=== PATIENT | female | born 1970 | race Caucasian/White ===

== ENCOUNTER 2018-04-25 14:07 | Emergency (ER) | payer OTHER ==
--- NOTE | 2018-04-25 14:45 | EDM.PDOC ---
ED HPI GENERAL MEDICAL PROBLEM - General Chief Complaint: Lower Extremity Injury/Pain Stated Complaint: BLISTER POPPED ON RT FT Time Seen by Provider: 04/25/18 14:39 - History of Present Illness INITIAL COMMENTS - FREE TEXT/NARRATIVE: HISTORY AND PHYSICAL: History of present illness: Patient is a 47-year-old white female presents for medical screening exam patient had an injury to her right lower extremity that required suturing and podiatric referral she was treated she did develop subsequent blister that has subsequently ruptured and she presents today for reevaluation since the blister has ruptured and dressing change. Review of systems: As per history of present illness and below otherwise all systems reviewed and negative. Past medical history: As per history of present illness and as reviewed below otherwise noncontributory. Surgical history: As per history of present illness and as reviewed below otherwise noncontributory. Social history: No reported history of drug or alcohol abuse. Family history: As per history of present illness and as reviewed below otherwise noncontributory. Physical exam: HEENT: Atraumatic, normocephalic, pupils reactive, negative for conjunctival pallor or scleral icterus, mucous membranes moist, throat clear, neck supple, nontender, trachea midline. Lungs: Clear to auscultation, breath sounds equal bilaterally, chest nontender. Heart: S1S2, regular, negative for clicks, rubs, or JVD. Abdomen: Soft, nondistended, nontender. Negative for masses or hepatosplenomegaly. Negative for costovertebral tenderness. Pelvis: Stable nontender. Genitourinary: Deferred. Rectal: Deferred. Extremities: Posterior mold and dressing intact this was removed neurovascular exam is unremarkable is no evidence of infection she has some devitalized superficial skin where the blister was present and has subsequently ruptured. Neuro: Awake, alert, oriented. Cranial nerves II through XII unremarkable. Cerebellum unremarkable. Motor and sensory unremarkable throughout. Exam nonfocal. Diagnostics: None Therapeutics: Dressing change posterior mold reapplied Impression: #1 medical screening exam #2 wound check Definitive disposition and diagnosis as appropriate pending reevaluation and review of above. Review of Systems - Review of Systems Review Of Systems: ROS reveals no pertinent complaints other than HPI. ED EXAM, GENERAL - Physical Exam Exam: See Below (See dictation) Course - Vital Signs Last Recorded V/S: Last Vital Signs Temp 36.8 C 04/25/18 14:33 Pulse 78 04/25/18 14:33 Resp 18 04/25/18 14:33 BP 109/74 04/25/18 14:33 Pulse Ox 92 L 04/25/18 14:33 Departure - Departure Time of Disposition: 14:43 Disposition: Home, Self-Care 01 Condition: Good Clinical Impression: Encounter for medical screening examination, Visit for wound check - Discharge Information Additional Instructions: The following information is given to patients seen in the emergency department who are being discharged to home. This information is to outline your options for follow-up care. We provide all patients seen in our emergency department with a follow-up referral. The need for follow-up, as well as the timing and circumstances, are variable depending upon the specifics of your emergency department visit. If you don't have a primary care physician on staff, we will provide you with a referral. We always advise you to contact your personal physician following an emergency department visit to inform them of the circumstance of the visit and for follow-up with them and/or the need for any referrals to a consulting specialist. The emergency department will also refer you to a specialist when appropriate. This referral assures that you have the opportunity for followup care with a specialist. All of these measure are taken in an effort to provide you with optimal care, which includes your followup. Under all circumstances we always encourage you to contact your private physician who remains a resource for coordinating your care. When calling for followup care, please make the office aware that this follow-up is from your recent emergency room visit. If for any reason you are refused follow-up, please contact the [facility] emergency department at and asked to speak to the emergency department charge nurse. Follow-up private medical doctor in podiatry as discussed return as needed as discussed continue current medications
[2018-04-25] MEDS ORDERED: Bacitracin Oint 1 GM U/D Packet ONE (15:16)
[2018-04-25] MEDS ORDERED: Bacitracin Oint 1 GM U/D Packet TOP ONE (15:44)
== END 2018-04-25 15:49 | disposition home or self-care (01) ==
LOC: MW.ED 14:07
DX: S80.821D Blister (nonthermal), right lower leg, subsequent encounter (principal)
CPT/HCPCS: 99282; 99283